=== PATIENT | female | born 1935 | race Caucasian/White ===

== ENCOUNTER 2017-03-18 09:02 | Emergency (ER) | payer OTHER ==
[~2017-03-18] VITALS: Ht 160 cm; Wt 86.4 kg
[2017-03-18 09:05] VITALS: TEMP 36.8; O2SAT 95; Ht 160 cm; Wt 86.4 kg
--- NOTE | 2017-03-18 09:33 | EMERGENCY ROOM VISIT NOTE ---
History First contact with patient: 09:14 Chief Complaint: COUGH Stated Complaint: COUGH,RUNNY NOSE Nursing Triage Summary: Nonproductive cough for 3 days, worsened yesterday. History of bronchitis, feels similar. Denies SOB or CP. History of Present Illness The patient is a 81 year old female who presents to the Emergency Room with complaints of cough 3 days. Patient states the cough is nonproductive, but has gradually been worsening over the past 3 days. She states she is not feeling like her throat is irritated due to the coughing. The patient denies any dyspnea, or coughing up sputum or blood. Patient denies any upper respiratory infection symptoms, however she does state she has a little bit of a runny nose. No congestion, sore throat, fever, chills, nausea, vomiting, chest pain, or other associated symptoms. Patient states she does have a history of bronchitis, which has presented like this. The patient reports she normally catches the bronchitis early and goes to her primary care provider for treatment, but she waited at this time. The patient states she is concerned that the cough will become productive and turn into pneumonia. Patient is a former smoker, but does not currently smoke. She has a history of seasonal allergies. Last acute bronchitis with several years ago. Review of Systems A complete 10 point review of systems was reviewed with the patient with pertinent positives and negatives as per history of present illness. All else were negative. Social History Smoking Status: Former Smoker Current/Historical Medications Scheduled Albuterol (Ventolin Hfa), 2 PUFF INH q4-6H Allopurinol (Zyloprim), 300 MG PO DAILY Azithromycin (Zithromax Z-David), 0 PO UD Benzonatate (Tessalon Perles), 200 MG PO TID Diltiazem Hcl Coated Beads (Cardizem Cd), 240 MG PO DAILY Furosemide (Lasix), 40 MG PO QAM Meloxicam (Mobic), 15 MG PO DAILY Montelukast Sodium (Singulair), 10 MG PO QAM Omeprazole (Prilosec), 20 MG PO QAM Telmisartan/Hctz (Micardis Hct 80MG/12.5MG), 1 TAB PO QAM Scheduled PRN Acetaminophen (Tylenol Arthritis Ext Rel), 650 MG PO Q8H PRN for Pain Physical Exam Vital Signs Date Time Temp Pulse Resp B/P (MAP) Pulse Ox O2 Delivery O2 Flow Rate FiO2 03/18/17 11:05 88 20 120/57 03/18/17 09:08 96 Room Air 03/18/17 09:05 36.8 93 17 151/75 95 Room Air Physical Exam VITALS: Vitals are noted on the nurse's note and reviewed by myself. Vital signs stable. GENERAL: This is an otherwise healthy-appearing, 81-year-old female, in no acute distress, nondiaphoretic, well-developed well-nourished. The patient is having infrequent, short episodes of coughing during examination. SKIN: The skin was without rashes, erythema, edema, or bruising. There is no tenting of the skin. Capillary reflex less than 2 seconds. HEAD: Normocephalic atraumatic. EARS: External auditory canals clear, tympanic membranes pearly arora without erythema or effusion bilaterally. EYES: Pupils equal round and reactive to light and accommodation. Conjunctivae without injection, sclerae without icterus. Extraocular movements intact. NOSE: Patent, turbinates without inflammation or discharge. No sinus tenderness. MOUTH: Mucous membranes moist. Tonsils are not enlarged. Pharynx without erythema or exudate. Uvula midline. Airway patent. Tongue does not deviate. NECK: Supple without nuchal rigidity. No lymphadenopathy. No thyromegaly. Cervical spine is nontender. No JVD. HEART: Regular rate and rhythm without murmurs gallops or rubs. LUNGS: Very minimal expiratory wheezing in the bilateral bases. Otherwise, lungs are clear to auscultation bilaterally without wheezes, rales or rhonchi. No dullness to percussion. No retractions or accessory muscle use. Lung sounds did improve after breathing treatment. ABDOMEN: Positive bowel sounds x 4. Normal tympanic percussion. Soft, nontender, without masses or organomegaly. Haro sign negative. No guarding or rebound tenderness. MUSCULOSKELETAL: No muscle atrophy, erythema, or edema noted. Full range of motion without joint tenderness in all extremities. No tenderness to palpation. Normal gait. Strength 5/5 throughout. NEURO: Patient was alert and oriented to person place and time. Normal sensation to light and sharp touch. Deep tendon reflexes 2+ throughout. No focal neurological deficits. Medical Decision & Procedures ER Provider Diagnostic Interpretation: CXR: FINDINGS: Cardiac silhouette is mildly enlarged. There is atherosclerosis of the aorta. No pneumothorax or pleural effusion. Subsegmental bibasilar opacities suggest atelectasis. There is mild right hemidiaphragmatic elevation. Post surgical changes are seen involving the left humeral head. The bones are moderately demineralized with multifocal degenerative changes seen. Age-indeterminate compression deformities are noted involving a mid and lower thoracic segment, likely T10 and T6. IMPRESSION: 1. Probable subsegmental bibasilar atelectasis without acute cardiopulmonary process. 2. Age-indeterminate compression deformities are seen involving the T6 and T10 vertebral bodies. Background osteopenia. Medications Administered Medications (Trade) Dose Ordered Sig/Ayah Route Start Time Stop Time Status Last Admin Dose Admin Albuterol/ Ipratropium (Duoneb) 3 ml NOW STAT INH 03/18/17 09:37 03/18/17 09:39 DC 03/18/17 09:44 3 ML Medical Decision Patient presents with intermittent episodes of coughing which began 3 days ago. She history of bronchitis which is presented similar in the past. The patient is taking no medications or cough. Chest x-ray was negative for pneumonia, but did show bibasilar atelectasis. The patient was given a breathing treatment in the emergency department, and symptoms did improve. I discussed the case with Dr. Martinez, who was in agreement with the assessment and plan. He did independently see and evaluate the patient. I did discuss with the patient that bronchitis is most often viral in nature and antibiotics are not indicated or needed to treat this disorder. I advised her that we would treat symptomatically right now, and encouraged her to follow- up with her PCP on Tuesday. I advised the patient to take antibiotics only if her symptoms worsen over the weekend despite symptomatic treatment. Differential diagnosis includes: Acute bronchitis, pneumonia, GERD, upper respiratory infection, cardiac disease, COPD, malignancy, and others. Medication Reconcilliation Current Medication List: was personally reviewed by me Blood Pressure Screening Patient's blood pressure: Normal blood pressure Impression Primary Impression: Acute bronchitis Departure Information Dispostion Home / Self-Care Condition GOOD Prescriptions Albuterol (Ventolin Hfa) 60 Puffs/5400 Mcg Aers 2 PUFF INH q4-6H, #1 INHALER Prov: Anaya Phillips, PAJerald 03/18/17 Benzonatate (Tessalon Perles) 200 Mg Cap 200 MG PO TID for 10 Days, #30 CAP Prov: Anaya Phillips PA-C 03/18/17 Azithromycin (ZITHROMAX Z-DAVID) 250 Mg Tab 0 PO UD, #1 PKT 2 TABS DAY 1, THEN 1 TAB DAILY FOR 4 DAYS Prov: Anaya Phillips PA-C 03/18/17 Referrals No Doctor, Assigned (PCP) Patient Instructions Bronchitis Acute, My [facility] Additional Instructions You were seen in the emergency department today for three-day history of nonproductive cough. You did not have a fever, and chest x-ray did rule out pneumonia. As discussed, bronchitis is most usually caused by a virus, and does not need antibiotic treatment. This will improve on its own in most cases. You have been prescribed an albuterol inhaler to help with wheezing. This is to be used 2 puffs every 4-6 hours as needed for wheezing and cough. You have been prescribed benzonatate pearles for your cough. These can be used one capsule three times daily as needed for coughing. Please follow up with your PCP in 2-3 days for recheck and further evaluation. You were prescribed azithromycin to be taken daily if symptoms worsen over the weekend. This is an antibiotic. All antibiotics have the potential to cause diarrhea. Stop this medication and contact a medical provider if you were to develop any significant adverse side effects including: wheezing, shortness of breath, passing out, vomiting, or a diffuse rash. Always take antibiotics as directed and COMPLETE the ENTIRE course regardless of the improvement of your symptoms. You were given a prescription for azithromycin. This is ONLY to be taken if your symptoms worsen over the weekend or if you experience fever, coughing up sputum, difficulty breathing, or other concerning symptoms. Return to the emergency department for any difficulty breathing, coughing up blood or sputum, fever, nausea, vomiting, or other concerning symptoms. Problem Qualifiers Primary Impression: Acute bronchitis Bronchitis organism: unspecified organism Qualified Codes: J20.9 - Acute bronchitis, unspecified
[2017-03-18] MEDS ORDERED: ALBUT/IPRATROP 3MG/0.5MG NEB 3 ML VIAL INH STA (09:37)
[2017-03-18] MEDS ORDERED: ALLO300T2 PO (09:41)
[2017-03-18] MEDS ORDERED: ACET1TAB84 PO (09:41)
[2017-03-18] MEDS ORDERED: TELM80TA4 PO (09:41)
[2017-03-18] MEDS ORDERED: FRS/40 PO (09:41)
[2017-03-18] MEDS ORDERED: DILT240C57 PO (09:41)
[2017-03-18] MEDS ORDERED: MELO7.5T5 PO (09:41)
[2017-03-18] MEDS ORDERED: PRLSR20 PO (09:41)
[2017-03-18] MEDS ORDERED: MONT1TAB3 PO (09:41)
--- NOTE | 2017-03-18 10:28 | DIAGNOSTIC IMAGING REPORT ---
CHEST 2 VIEWS ROUTINE HISTORY: 81 years-old Female cough acute cough and shortness of breath x1 day. Initial exam. COMPARISON: None available. TECHNIQUE: Frontal and lateral views of the chest FINDINGS: Cardiac silhouette is mildly enlarged. There is atherosclerosis of the aorta. No pneumothorax or pleural effusion. Subsegmental bibasilar opacities suggest atelectasis. There is mild right hemidiaphragmatic elevation. Post surgical changes are seen involving the left humeral head. The bones are moderately demineralized with multifocal degenerative changes seen. Age-indeterminate compression deformities are noted involving a mid and lower thoracic segment, likely T10 and T6. IMPRESSION: 1. Probable subsegmental bibasilar atelectasis without acute cardiopulmonary process. 2. Age-indeterminate compression deformities are seen involving the T6 and T10 vertebral bodies. Background osteopenia. The above report was generated using voice recognition software. It may contain grammatical, syntax or spelling errors. Electronically signed by: Geovani Hough M.D. 03/18/2017 10:27 AM Dictated Date/Time: 03/18/2017 10:24 AM
--- NOTE | 2017-03-18 10:42 | EMERGENCY ROOM VISIT NOTE ---
ED Visit Note First contact with patient: 10:38 HPI: cough, congestion PE: AFVSS, NAD NC/AT RRR, no murmurs CTAB Abd soft NT/ND Ext: no edema, erythema Neuro: grossly intact Plan: CXR with bibasilar atelectasis but Afebrile. Well-appearing. Labs not indicated. Plan for MDI. Azithro RX in case sx not improved in 24-48 hours. pcp f/u. I reviewed the patient's past medical history, medications, and visit nursing notes. I discussed the case with the physician medical assistant dermatology, examined the patient, and agree with the findings and plan as documented in the physician assistants note.
[2017-03-18] MEDS ORDERED: AZITTAB PO (10:44)
[2017-03-18] MEDS ORDERED: BENZ1CAP90 PO (11:02)
[2017-03-18 11:05] VITALS: BP 120/57; PULSE 88
[2017-03-18] MEDS ORDERED: PRVHFAIN INH (11:10)
== END 2017-03-18 11:24 | disposition home or self-care (01) ==
LOC: C.EDB 09:04
DX: J20.9 Acute bronchitis, unspecified (principal); Z87.891 Personal history of nicotine dependence